=== PATIENT | male | born 1990 | race Caucasian/White ===

== ENCOUNTER 2017-05-08 03:12 | Observation (INO) ==
[2017-05-08 06:55] VITALS: BP 138/80
[2017-05-08] MEDS ORDERED: *HR* LORazepam 2 MG/ML VIAL IVP PRN (07:00)
[2017-05-08] MEDS ORDERED: *HR* HYDROcodone/Acet 5/325 mg TABLET PO PRN (07:03)
[2017-05-08] MEDS ORDERED: NON-FORMULARY MEDICATION 1 EACH EACH (Buprenorphine Hcl/Naloxone Hcl [Suboxone 8 Mg-2 Mg S PO SCH (09:00)
--- NOTE | 2017-05-08 11:49 | Event Note ---
Date of Encounter: 05/08/17 Time of Encounter: 11:48 Patient left the hospital AMA before I saw him.
[2017-05-08] MEDS ORDERED: Gabapentin 300 MG CAPSULE PO SCH (21:00)
[2017-05-08] MEDS ORDERED: Acetaminophen 325 MG TABLET PO SCH (21:00)
== END 2017-05-08 08:53 | disposition left against medical advice (07) ==
LOC: 2ANU
PROVIDERS: ADMIT Internal Medicine; ATTEND Internal Medicine

== ENCOUNTER 2017-05-08 20:31 | Observation (INO) ==
[2017-05-08] MEDS ORDERED: *HR* Propofol 500 MG/50 ML BOTTLE IVP ONE (20:47)
[2017-05-08] MEDS ORDERED: 0.9 % Sodium Chloride 1,000 ML IVC ONE (20:48)
--- NOTE | 2017-05-08 21:09 | Emergency Department Note ---
START Narrative - START START: I examined this patient and my medical decision-making was reviewed with the Resident Physician. I agree with the documented findings, disposition and treatment plan as described except to the extent set forth below. 26 year old male presntse to the eD with complaints of left shoudler dislocation and is a transfer from [place] where they attempted to reduce the shoulder x 4 under versed sedation and was unsuccessful. He is neurovascualarly intact although this disloction ahs been out for about 24 hours and may deem to be difficult to reduce. WE will attempt with sedation with propofol and then reduce and consult with ortho if we are unsuccessful with reduction. High likelihood that this it will not be reduced. Consent has been obtained.
[2017-05-08] MEDS ORDERED: *HR* LORazepam 2 MG/ML VIAL IVP ONE (21:52)
[2017-05-08] MEDS ORDERED: *HR* LORazepam 2 MG/ML VIAL ONE (21:53)
--- NOTE | 2017-05-08 22:31 | Emergency Department Note ---
Disposition Clinical Impression: Anterior shoulder dislocation Qualifiers: Encounter type: initial encounter Laterality: left Qualified Code(s): S43.015A - Anterior dislocation of left humerus, initial encounter Disposition: Admitted As Inpatient Condition: Fair Time of Disposition: 22:34 General Adult HPI - General Chief complaint: ED Extremity Injury, Upper Stated complaint: left shoulder dislocation Time Seen by Provider: 05/08/17 20:35 Source: patient, EMS Limitations: no limitations Nursing Notes Reviewed: Yes Vital Signs Reviewed: Yes - History of Present Illness HPI Narrative: Patient is a 26-year-old male who presents to [facility] ED with a chief complaint of left shoulder dislocation. Patient states he had a seizure last night and had left shoulder pain. He then came back to [facility] where he was found to have a left shoulder dislocation. States they attempted to reduce it 4 times without success. He was then sent over here for further management. Apparently he had also been sent over to our facility for admission and neuro workup. He then left AGAINST MEDICAL ADVICE earlier this morning. Onset (ago): hour(s) Location: left, upper extremity Pain Severity: moderate Pain Scale: 7 Consistency: constant Improves with: nothing Worsens with: nothing Associated symptoms: Reports: denies other symptoms. Denies: chest pain, cough , fever/chills, nausea/vomiting, shortness of breath Treatments Prior to Arrival: NSAID - Related Data Home Medications Medication Instructions Recorded Confirmed Buprenorphine HCl/Naloxone HCl 1 film PO BID 05/08/17 05/08/17 [Suboxone 8 mg-2 mg Sl Film] Allergies Allergy/AdvReac Type Severity Reaction Status Date / Time No Known Allergies Allergy Verified 02/16/17 21:35 All systems ED: reviewed and negative except as stated. Past Medical History - Past Medical History Attestation: Yes The following information was validated with the patient. Source: patient Medical history: Reports: other Surgical history: Reports: no surgical history Psychiatric history: Reports: no psych history - Social History Smoking Status: Current every day smoker Smokeless Tobacco Status: No Alcohol use: Reports: none Drug use: Reports: none, opiates, prescription drug abuse, other Physical Exam - General Limitations: no limitations General appearance: alert - Head Head exam: atraumatic, normocephalic, normal inspection - Eye Eye exam: Present: normal appearance, PERRL, EOMI - ENT ENT exam: normal exam, normal oropharynx, mucous membranes moist - Neck Neck exam: Present: trachea midline - Chest Chest inspection: Present: normal inspection, symmetric chest wall rise - Respiratory Respiratory exam: Present: normal lung sounds bilaterally - Cardiovascular Cardiovascular exam: Present: normal rhythm, tachycardia, normal heart sounds - Abdominal Exam Abdominal exam: Present: soft, Non-Tender. Absent: tenderness, distention, guarding, rebound, rigidity - Expanded Upper Extremity Exam Shoulder exam: Present: tenderness, dislocation (L shoulder) Vascular exam: Normal: capillary refill, radial pulse - Back Exam Back exam: Present: normal inspection, full ROM. Absent: tenderness - Neurological Exam Neurological exam: Present: alert, oriented X3 - Psychiatric Psychiatric exam: Present: normal affect, normal mood - Skin Skin exam: Present: warm, dry, intact, normal color Course Course Narrative: Patient seen and examined. Left shoulder dislocation. We will set up for procedural sedation for reduction. Propofol ordered. Consent was signed. Reduction was unsuccessful. Postreduction film still shows anterior dislocated shoulder. I discussed with on-call orthopedic surgeon Dr. Garcia who states that due to this patient's recent new onset seizures, we will admit to medicine and he will consult. I also discussed with neurologist Dr. Santos who states they will see this patient on an outpatient basis. States no need for any seizure medication at this time. They can be consulted if patient has another seizure while inpatient. Vital Signs Temperature 98.4 F 05/08/17 20:34 Pulse Rate 106 05/08/17 20:34 Respiratory Rate 20 05/08/17 20:34 Blood Pressure 134/70 05/08/17 20:34 O2 Sat by Pulse Oximetry 97 05/08/17 20:34 Temperature 98.2 F 05/08/17 23:02 Pulse Rate 119 05/08/17 23:02 Respiratory Rate 17 05/08/17 23:02 Blood Pressure 164/91 05/08/17 23:02 O2 Sat by Pulse Oximetry 94 05/08/17 23:02 Oxygen Delivery Oxygen Delivery [2211] Room Air Oxygen Delivery [2156] Nasal Cannula Oxygen Delivery [2151] Nasal Cannula Oxygen Delivery [2146] Nasal Cannula Oxygen Delivery [2140] Nasal Cannula Oxygen Delivery [2136] Nasal Cannula Oxygen Delivery [2132] Nasal Cannula Oxygen Delivery [2117] Nasal Cannula Oxygen Delivery Room Air Procedures - Orthopedic Joint Reduction Joint #1 Consent Obtained: verbal consent, written consent Time Out Performed: Yes Side: left Joint Reduction Location: shoulder ASA Classification: CLASS II-Mild systemic disease Analgesia: procedural sedation Shoulder Technique Used (if applicable): traction/counter-traction Post-reduction neuro exam: intact Post-reduction vascular: intact Post Reduction X-Ray Obtained: Yes Post Reduction X-Ray Results: not reduced Splint Applied: No Patient Tolerated Procedure: well - Procedural Sedation Indication: fracture/dislocation reduction Dietary Status: NPO after Midnight Previous reaction to sedatives/anesthetics: No Airway Assessment: Patient can open mouth completely, TMJ function normal, Micrognathia (under-bite, receding chin) absent, Neck with adequate range of motion Possible difficult airway: No ASA Classification: CLASS II-Mild systemic disease Plan of Care: Pt appropriate candidate for procedure/moderate/conscious sedation , Risks/benefits of procedure/sedation discussed w/ patient/family Preparation: quality assurance monitor chassis applied, pulse oximeter, capnometry used, supplemental O2 applied, suction/airway equipment at bedside, IV secured IV Propofol Dose (mgs): 100 Patient Tolerated Procedure: well, no complications Complications: none Interventions: oxygen applied Medical Decision Making - Medical Records Medical records reviewed: Yes I reviewed the patient's medical records. - Lab Data Result diagrams: 05/09/17 00:27 05/08/17 23:17 - Radiology Data Radiology results reviewed: Yes I reviewed the patient's radiology results. Shoulder X-Ray 05/08/17 21:42 IMPRESSION: Persistent anterior inferior left glenohumeral dislocation. No evident fracture. D/ / Germán Staton / Germán Staton Interpreting Provider: Germán Staton
--- NOTE | 2017-05-08 22:44 | Internal Med History&Physical ---
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 EEG will need done Seizure precautions PRN Ativan for sz activity Code(s): R56.9 - Unspecified convulsions Internal Medicine - H&P: HPI Chief complaint: left shoulder dislocation Admitted From: Emergency Dept Plans for Post Hospital Care: Home History of present illness: The patient is a 26 year old man who was admitted to [facility] via transfer from [facility] ER early this am (~7am)following a syncopal event and witnessed seizure while at [facility] who left AMA later in the morning (~8am per RN notes) before being seen by Neurology and having an ordered left shoulder X-Ray completed. He then returned to [facility] ER later in the day with left shoulder pain and X-rays revealed a sholder dislocation. Per ER notes they were unsuccesful at reducing the dislocationa and he was transfered to [facility] ER. Propafol was used to sedate him but the attempt to reduce his dislocation was also unsuccessful. Orthopedic surgery was reported called and the hopitalist service was asked to admit him for consultation and possible surgery. No further seizure activity is reported by the patient. He still needs further workup for the syncopal event and new onset seizure. Past Med Surg Social Fam HX - Past Medical History Medical history: other Psychiatric history: no psych history - Past Surgical History Surgical History: no surgical history - Social History Smoking Status: Current every day smoker Smokeless Tobacco Status: No Alcohol use: none Drug use: none, opiates, prescription drug abuse, other - Family History Mother Family Member Ethnicity: Non- Living Status: Still Living Hx Family Cardiac Disorders: Yes (HTN) Internal Medicine - H&P: Meds Buprenorphine HCl/Naloxone HCl [Suboxone 8 mg-2 mg Sl Film] 1 film PO BID [History] 3 Allergy/AdvReac Type Severity Reaction Status Date / Time No Known Allergies Allergy Verified 02/16/17 21:35 All Systems PM: A 10-system review of systems was performed and is negative for pertinent findings except as documented above in the HPI. - Constitutional Constitutional: no anorexia, no chills, no lethargy - EENT Eyes: no diplopia, no irritation, no photophobia Nose, mouth and throat: no dry mouth, no nasal congestion, no sore throat, no throat swelling - Breasts Breasts: skin changes - Cardiovascular Cardiovascular ROS IM: no chest pain, no diaphoresis, no irregular heart rhythm , no paroxysmal nocturnal dyspnea, no syncope - Respiratory Respiratory: dyspnea - Gastrointestinal Gastrointestinal: no change in bowel habits, no dysphagia, no fecal incontinence - Musculoskeletal Musculoskeletal ROS IM: as per HPI, joint swelling, limited range of motion, no neck pain, no numbness - Integumentary Integumentary IM: erythema, no pruritus, no skin ulcer, no sores, no jaundice - Neurological Neurological ROS: no abnormal speech, no behavioral changes, no disequilibrium, no lack of coordination, no paresthesias, no radicular pain, no tingling - Psychiatric Psychiatric: no hallucinations, no homicidal ideation, no suicidal ideation - Constitutional Vitals: Temp Pulse Resp BP Pulse Ox 98.4 F 108 20 113/98 97 05/08/17 20:34 05/08/17 22:14 05/08/17 22:14 05/08/17 22:14 05/08/17 20:34 General appearance: Present: A&O X 3 - Head Head exam: Present: atraumatic, normocephalic - Eye Eye exam: Present: normal appearance, PERRL, conjuntiva pink, sclera anicteric Pupils: Present: PERRL - Neck Neck exam general surgery: Present: supple, trachea midline. Absent: lymphadenopathy - Respiratory Respiratory exam: Present: CTAB. Absent: accessory muscle use, rales, rhonchi, wheezes - Cardiovascular Cardiovascular exam: Present: RRR, +S1, +S2. Absent: diastolic murmur, gallop, rubs, systolic murmur - GI/Abdominal GI/Abdominal exam: Present: normal bowel sounds, soft, no peritoneal signs. Absent: distended, tenderness - Extremities Exam Extremities exam: Present: warm, radial pulses palpable and symmetrical. Absent : calf tenderness, cyanotic, pedal edema - Neurological Exam Neurological exam: Present: CN II-XII intact, oriented X3, no focal deficits. Absent: pronater drift, facial droop, speech deficit - Skin Skin exam: Present: dry, intact
[2017-05-08] MEDS ORDERED: *HR* FentaNYL (PF) 100 MCG/2 ML VIAL IVP PRN (22:56)
[2017-05-08] MEDS ORDERED: *HR* HYDROcodone/Acet 5/325 mg TABLET PO PRN (22:57)
[2017-05-08] MEDS ORDERED: 0.9 % Sodium Chloride 1,000 ML IVC SCH (23:00)
[2017-05-08] MEDS ORDERED: Acetaminophen 325 MG TABLET PO PRN (23:10)
[2017-05-08] MEDS ORDERED: *HR* LORazepam 2 MG/ML VIAL IVP PRN (23:38)
[2017-05-08 23:39] LABS: INR 1.1
[2017-05-08] MEDS ORDERED: Melatonin 3 MG TABLET PO PRN (23:39)
[2017-05-08 23:41] LABS: Activated Partial Thrombo Time 28.6 Seconds (26.0-36.0)
[2017-05-08 23:51] LABS: BUN/Creatinine Ratio 16 (6-26); Blood Urea Nitrogen 10 mg/dL (6-20); Calcium 9.1 mg/dL (8.6-10.3); Carbon Dioxide 26 mEq/L (23-29); Chloride 107 mEq/L (98-107); Glucose 106 mg/dL (70-105); Osmolality,Calculated 287 (280-300); Potassium 3.3 mEq/L (3.5-5.1); Sodium 139 mEq/L (136-145); eGFR For Non-African Americans > 60 (> 60)
[2017-05-08] MEDS: Ketorolac 30 MG/ML VIAL IVP PRN (23:56)
[2017-05-09 01:42] LABS: Eosinophils % 0.4 %; Hematocrit 36.7 % (37.5-50.1); Hemoglobin 12.4 g/dL (12.9-16.9); Immature Granulocytes % 0.2 % (0-4); Immature Platelets 1.6 % (1.1-6.1); Lymphocytes % 9.6 %; Mean Corpuscular HGB Conc 33.8 g/dL (31.6-35.5); Mean Corpuscular Hemoglobin 31.1 pg (28.0-33.3); Mean Platelet Volume 9.4 fL (9.4-12.4); Monocytes % 11.5 %; Platelet Count 253 K/mcL (140-400); Red Blood Count 3.99 M/mcL (4.19-5.50); Red Cell Distribution Width 12.9 % (11.5-14.5); Segmented Neutrophils % 78.1 %
[2017-05-09 01:43] LABS: Basophils % 0.2 %; Lymphocytes # 0.9 K/mcL (0.6-4.6); Monocytes # 1.1 K/mcL (0.0-1.3); Neutrophils # 7.6 K/mcL (1.6-8.9)
[2017-05-09] MEDS: Nicotine 14 MG PATCH.TD24 TD SCH (09:20)
[2017-05-09] MEDS: Ketorolac 30 MG/ML VIAL IVP PRN (09:40)
--- NOTE | 2017-05-09 12:08 | Orthopedic Consult Note ---
Date of Encounter: 05/09/17 Time of Encounter: 12:01 History of Present Illness Chief complaint: Left shoulder pain HPI: Mr. Lo is a 26 year old right hand dominant male who sustained a left shoulder injury in what was a witnessed seizure in the emergency room at [facility]. The patient apparently had little shoulder pain with that first occurred but returned to the emergency room later for further evaluation and treatment.. Yesterday he was seen at [facility] and reportedly had at least 4 attempts to reduce a shoulder dislocation. These were unsuccessful and the patient was sent to [facility]'s emergency room for further treatment. Again several attempts were made to reduce the shoulder with propofol anesthesia without success. I was called to see the patient for this shoulder dislocation. My recommendation was to admit the patient to the hospital and proceed with a general anesthesia under controlled situation. This is also necessary in light of the patient's recent undiagnosed seizure episode. Patient denies numbness or tingling. He states that he has had no previous episodes. Complete history and physical data as well as laboratory and x-ray studies were reviewed. Pertinent orthopedic examination reveals an empty glenoid sign on the left side. Neurosensory exam appears grossly intact. I did not perform a full exam due to the known dislocation and to minimize any additional trauma to the shoulder. Did review multiple left shoulder x-rays. There were 2 sets of shoulder x-rays taken at [facility] the revealed persistent anterior inferior glenohumeral dislocation. A third set obtained at [facility] late last night revealed persistent glenohumeral dislocation. Impression: Left anterior inferior glenohumeral dislocation, repeated attempts at reduction unsuccessful. Recommendation: I discussed with the patient the diagnosis and management of a shoulder dislocation. Due to the repeated episodes in a short period of time I did not recommend further attempts last night. In addition, the patient's recent seizure has been diagnosed and I would not feel comfortable proceeding with a more generalized anesthetic without the assistance of an anesthesiologist. For that reason the patient was admitted to the hospital and now we are going to proceed with closed reduction of his shoulder under anesthesia. [facility] understands that there is a slight risk that the closure reduction will not be successful and he will require an open reduction. We discussed all the potential risks and complications of the surgery at length whether we are doing a closed and open reduction. The patient is well aware that he does stand a high percentage chance of recurrent dislocations and we did discuss the possibility of surgical stabilization in the future. This would not even be entertained until his seizure disorder has been fully evaluated and he is appropriate for surgical intervention. Informed consent has been signed to proceed with the reduction today. We will place him into a sling and swath strap post operatively to minimize any repeat episodes. Thank you very much for line is seen care for Mr. Lo. Sincerely, Wes Garcia,DO Past Med Surg Social Fam HX - Past Medical History Medical history: other Psychiatric history: no psych history - Past Surgical History Surgical History: no surgical history - Social History Smoking Status: Current every day smoker Packs per day: 1/2 pack Smokeless Tobacco Status: No Alcohol use: none Drug use: none, opiates, prescription drug abuse, other - Family History Mother Adopted: No Family Member Ethnicity: Non- Living Status: Still Living Hx Family Cardiac Disorders: Yes (HTN) Hx Family Respiratory Disorders: No Hx Family Cancer: No Hx Family GI Disorders: No Hx Family Genitourinary Disorders: No Hx Family Endocrine Disorder: No Hx Family Musculoskeletal Disorders: No Hx Family Neuromuscular Disorders: No Hx Family Neurologic Disorders: No Hx Family HEENT Disorders: No Hx Family Autoimmune Disorders: No Hx Family Reproductive Disorders: No Hx Family Psychosocial Disorders: No Hx Family Medical Disorders: No Medications and Allergies Buprenorphine HCl/Naloxone HCl [Suboxone 8 mg-2 mg Sl Film] 1 film PO BID [History] 3 Allergy/AdvReac Type Severity Reaction Status Date / Time No Known Allergies Allergy Verified 02/16/17 21:35 All Systems Reviewed: The remainder of the systems were reviewed and are negative Physical Exam - Constitutional Vitals: Temp Pulse Resp BP Pulse Ox 98.1 F 108 16 159/82 96 05/09/17 10:51 05/09/17 10:51 05/09/17 10:51 05/09/17 10:51 05/09/17 10:51 Results - Labs Result Diagrams: 05/09/17 00:27 05/08/17 23:17 Labs: Abnormal lab results RBC 3.99 M/mcL (4.19-5.50) L 05/09/17 00:27 Hgb 12.4 g/dL (12.9-16.9) L D 05/09/17 00:27 Hct 36.7 % (37.5-50.1) L 05/09/17 00:27 Potassium 3.3 mEq/L (3.5-5.1) L 05/08/17 23:17 Creatinine 0.63 mg/dL (0.70-1.30) L 05/08/17 23:17 Glucose 106 mg/dL (70-105) H 05/08/17 23:17 H & H 05/09/17 Range/Units 00:27 Hgb 12.4 L D (12.9-16.9) g/dL Hct 36.7 L (37.5-50.1) % All other labs normal. - Diagnostic results Shoulder x-ray: image reviewed Consult Discharge Plan - Plan Referrals: NONE,PCP [Primary Care Provider] - Patrick Avila MD [Family Provider] -
--- NOTE | 2017-05-09 13:04 | Internal Med Progress Note ---
Date of Encounter: 05/09/17 Time of Encounter: 09:00 - Assessment and plan (1) Anterior shoulder dislocation Current Visit: Yes Status: Acute Assessment and plan: ortho eval pain control Qualifiers: Encounter type: initial encounter Laterality: left Qualified Code(s): S43.015A - Anterior dislocation of left humerus, initial encounter (2) Seizure Current Visit: Yes Status: Acute Assessment and plan: continue keppra 500mg IV q12h Neuro eval, consulted and called (3) Syncope and collapse Current Visit: Yes Status: Acute Assessment and plan: follow syncope work up viz-ECHO and carotids - Subjective Interval history: Patient is seen and evaluated with his mother at the bedside. 26-year-old male with new onset seizures, complicated by dislocation of his left anterior shoulder. He is pending orthopedic evaluation at my time of evaluation. He denies any new complaints. Pain on his left shoulder. I spoke with Dr. Santos neurologist airport operations supervisor, who recommended patient be started on Keppra, patient is on Keppra 500 mg IV q12h - Constitutional Vitals: Temp Pulse Resp BP Pulse Ox 98.1 F 108 16 159/82 96 05/09/17 10:51 05/09/17 10:51 05/09/17 10:51 05/09/17 10:51 05/09/17 10:51 General appearance: Present: A&O X 3, no acute distress, obese - Head Head exam: Present: atraumatic, normocephalic - Eye Eye exam: Present: PERRL, conjuntiva pink, sclera anicteric Pupils: Present: PERRL - Neck Neck exam general surgery: Present: supple, trachea midline. Absent: lymphadenopathy - Respiratory Respiratory exam: Present: CTAB. Absent: accessory muscle use, rales, rhonchi, wheezes - Cardiovascular Cardiovascular exam: Present: RRR, +S1, +S2. Absent: diastolic murmur, gallop, rubs, systolic murmur - GI/Abdominal GI/Abdominal exam: Present: normal bowel sounds, soft, no peritoneal signs. Absent: distended, tenderness - Extremities Exam Extremities exam: Present: warm, radial pulses palpable and symmetrical. Absent : calf tenderness, cyanotic, pedal edema - Neurological Exam Neurological exam: Present: alert, CN II-XII intact, oriented X3, no focal deficits. Absent: pronater drift, facial droop, speech deficit - Skin Skin exam: Present: dry, intact Internal Medicine: Result - Labs CBC & Chem 7: 05/09/17 00:27 05/08/17 23:17 Labs: Short CBC 05/09/17 Range/Units 00:27 WBC 9.7 (4.3-11.1) K/mcL Hgb 12.4 L D (12.9-16.9) g/dL Hct 36.7 L (37.5-50.1) % Plt Count 253 (140-400) K/mcL Neutrophils # 7.6 (1.6-8.9) K/mcL BMP 05/08/17 23:17 Sodium 139 Potassium 3.3 L Chloride 107 Carbon Dioxide 26 BUN 10 Creatinine 0.63 L Glucose 106 H Calcium 9.1 - ABG Interpretation ABG results: PT/INR, D-dimer PT 12.0 Seconds (9.4-12.1) 05/08/17 23:17 Consult Discharge Plan - Plan Referrals: Patrick Avila MD [Family Provider] - NONE,PCP [Primary Care Provider] -
--- NOTE | 2017-05-09 14:48 | Neurology - Consult Note ---
Date of Encounter: 05/09/17 Time of Encounter: 14:39 Assessment and Plan (1) New onset seizure Current Visit: Yes Status: Acute This patient will apparently had a new seizure witnessed by the family in the emergency room according to the family has a generalized tonic-clonic conversion without any obvious Exacerbating factors He is been on Suboxone for quite some time no changes in the dosage or frequency. Seemed to be unprovoked and has caused it location of his shoulder Probably needs surgical intervention any generalized anesthesia. Concern about clearance for anesthesia because of the seizure He has been started on Keppra suggested to continue we will get an EEG and probably need MRI later As far as any clear evidence for seizures patient with underlying seizure disorder, remain at risk for breakthrough seizures pre-and recovery. Due to effect of medication and is practically no way to predict the outcome The best way is to treat any breakthrough seizures if there is any patient is already on antiepileptic medication suggest to continue and pre-and postop. Patient and family should be aware off risk of breakthrough seizures. A decision should be made according to the risk-benefit ratio I have discussed in detail with the family and patient explained about the possibility of breakthrough seizures they understand and acknowledges Explained that he is already on medication and suggest that he should continue on it (2) H/O: substance abuse Current Visit: Yes Status: Acute History of Present Illness HPI: Mr. Lo is a 26 year old male who was admitted to [facility] via transfer from [facility] early this am (~7am)following a syncopal event and witnessed seizure while at [facility] who left AMA later in the morning (~8am per RN notes) before being seen by Neurology and having an ordered left shoulder X-Ray completed. He then returned to [facility] ER later in the day with left shoulder pain and X-rays revealed a sholder dislocation. Per ER notes they were unsuccesful at reducing the dislocationa and he was transfered to [facility] ER. Propafol was used to sedate him but the attempt to reduce his dislocation was also unsuccessful. Orthopedic surgery was reported called and the hopitalist service was asked to admit him for consultation and possible surgery. No further seizure activity is reported by the patient. He still needs further workup for the syncopal event and new onset seizure. Past Med Surg Social Fam HX - Past Medical History Medical history: other Psychiatric history: no psych history - Past Surgical History Surgical History: no surgical history - Social History Smoking Status: Current every day smoker Packs per day: 1/2 pack Smokeless Tobacco Status: No Alcohol use: none Drug use: none, opiates, prescription drug abuse, other - Family History Mother Adopted: No Family Member Ethnicity: Non- Living Status: Still Living Hx Family Cardiac Disorders: Yes (HTN) Hx Family Respiratory Disorders: No Hx Family Cancer: No Hx Family GI Disorders: No Hx Family Genitourinary Disorders: No Hx Family Endocrine Disorder: No Hx Family Musculoskeletal Disorders: No Hx Family Neuromuscular Disorders: No Hx Family Neurologic Disorders: No Hx Family HEENT Disorders: No Hx Family Autoimmune Disorders: No Hx Family Reproductive Disorders: No Hx Family Psychosocial Disorders: No Hx Family Medical Disorders: No Medications and Allergies Buprenorphine HCl/Naloxone HCl [Suboxone 8 mg-2 mg Sl Film] 1 film PO BID [History] 3 Allergy/AdvReac Type Severity Reaction Status Date / Time No Known Allergies Allergy Verified 02/16/17 21:35 All Systems: The remainder of the systems were reviewed and are negative Physical Examination - Vital Signs Vital Signs: Initial Vital Signs Temp Pulse Resp BP Pulse Ox 98.4 F 106 20 134/70 97 05/08/17 20:34 05/08/17 20:34 05/08/17 20:34 05/08/17 20:34 05/08/17 20:34 - Neurologic Sensorimotor examination: intact Detailed motor examination: grossly full strength in all extremities Motor examination - right side: 5/5: deltoids, biceps, triceps, wrist flexion, wrist extension, hand tire trimmer, hip flexors, tibialis Anterior, quadriceps, toe extension (EHL), plantarflexion Motor examination - left side: 3/5: deltoids (pain), biceps, triceps, 5/5: wrist flexion, wrist extension, hip flexors, hand tire trimmer, quadriceps, tibialis Anterior , toe extension (EHL), plantarflexion Detailed sensory examination: intact Reflexes: Biceps: 1+, Triceps: 1+, Brachioradialis: 1+, Patella: 1+, Achilles: 1 + Mental Status Examination: awake, alert, oriented to person, oriented to place, oriented to time, follows commands appropriately, answers questions appropriately, no agnosia, no aphasia, no aproxia Cranial nerve examination: PERRL, EOMI, visual rai intact, corneal reflexes brisk symmetrically, sensory to face intact, mastication intact, no facial asymmetry is present, no dysarthria, hearing is intact symmetrically, soft palate elevates bilaterally upon phonation, gag reflex intact, flexes SCM and trapezius muscles symmetrically with full power, tongue protrudes midline, no atrophy or facial fasiculations present Cerebellar examination: no dysmetria, performs finger to nose and heel to person symmetrically without ataxia, no gait ataxia, no truncal ataxia, no difficulty with rapid alternating movements Results - Laboratory Findings CBC and BMP: 05/09/17 00:27 05/08/17 23:17 Abnormal lab findings: Abnormal lab results RBC 3.99 M/mcL (4.19-5.50) L 05/09/17 00:27 Hgb 12.4 g/dL (12.9-16.9) L D 05/09/17 00:27 Hct 36.7 % (37.5-50.1) L 05/09/17 00:27 Potassium 3.3 mEq/L (3.5-5.1) L 05/08/17 23:17 Creatinine 0.63 mg/dL (0.70-1.30) L 05/08/17 23:17 Glucose 106 mg/dL (70-105) H 05/08/17 23:17 Consult Discharge Plan - Plan Referrals: Patrick Avila MD [Family Provider] - NONE,PCP [Primary Care Provider] -
[2017-05-09] MEDS ORDERED: Albuterol 2.5 MG/3 ML NEBULIZER IH ONE (16:32)
[2017-05-09] MEDS ORDERED: Albuterol 2.5 MG/3 ML NEBULIZER ONE (16:33)
[2017-05-09] MEDS ORDERED: *HR* Propofol 200 MG/20 ML VIAL IVP ONE (17:29)
[2017-05-09] MEDS ORDERED: Lidocaine -MPF 2% 2 ML VIAL ONE (17:29)
[2017-05-09] MEDS ORDERED: *HR* FentaNYL (PF) 100 MCG/2 ML VIAL ONE (17:29)
[2017-05-09] MEDS ORDERED: Ondansetron 4 MG/2 ML VIAL ONE (17:52)
[2017-05-09] MEDS ORDERED: Dexamethasone 4 MG/ML VIAL ONE (17:52)
--- NOTE | 2017-05-09 18:15 | Anesthesia Evaluation PreOp ---
Date of Encounter: 05/09/17 Time of Encounter: 17:40 - Past History Planned Operation: Closed reduction left glenohumeral joint Cardiac History: Denies any Significant Hx, Other (Impressions: Sinus tachycardia. LVEF 60-65%. RV is not optimally visualized in all views. No significant valvular dysfunction. No pulmonary hypertension by TR gradient.) Pulmonary History: Smoker IRON HANDLER History: Denies Any Significant HX Other Medical History: Denies Any Significant HX Anesthesia History: Past Anesthesia (none) Alcohol Use: none Drug use: none, opiates, prescription drug abuse, other Medications and Allergies Buprenorphine HCl/Naloxone HCl [Suboxone 8 mg-2 mg Sl Film] 1 film PO BID [History] 3 Allergy/AdvReac Type Severity Reaction Status Date / Time No Known Allergies Allergy Verified 02/16/17 21:35 - Meds/Allergy Pre-op Review Medications Reviewed: Yes Allergies Reviewed: Yes Beta Blockers on Current Med List: No Anesthesia Results - Labs 05/09/17 00:27 05/08/17 23:17 Anesthesia Exam Weight: 126kg NPO (# of Hours): >8 - HEENT Pupil (Motor): Pupils equal, EOMI Mallampati: III Teeth: Normal Oral Opening: Greater than 3 - IRON HANDLER LOC: Oriented IRON HANDLER Motor: Normal RUE, Normal LUE, Normal RLE, Normal LLE, Normal Face IRON HANDLER Sensory: Normal: RUE, LUE, RLE, LLE, Face - Cardiac Rhythm: Regular - Pulmonary Breath Sounds: bilateral Clear Respiratory Effort: Symmetrical Anesthesia Assess/Plan ASA Score: 2 Modified P[place]te Scale for Level of Consciousness: Cooperative, oriented, and tranquil Anesthetic Plan: General Monitoring Plan: Standard Monitors Recovery Plan: PACU
[2017-05-09] MEDS ORDERED: *HR* OxyCODONE Immed Rel 5 MG TABLET PO PRN ×2 (18:16→18:30)
[2017-05-09] MEDS ORDERED: Ondansetron 4 MG/2 ML VIAL IVP ONE ×2 (18:16→18:30)
[2017-05-09] MEDS ORDERED: *HR* Promethazine 25 MG/ML VIAL IVP PRN ×2 (18:16→18:30)
[2017-05-09] MEDS ORDERED: Acetaminophen IV 1,000 MG/100 ML INFUS..BTL IVPB ONE ×2 (18:16→18:30)
[2017-05-09] MEDS ORDERED: *HR* Meperidine 25 MG/ML SYRINGE IVP PRN ×2 (18:16→18:30)
[2017-05-09] MEDS ORDERED: 0.9 % Sodium Chloride 1,000 ML IVC SCH (18:30)
[2017-05-09] MEDS ORDERED: Melatonin 3 MG TABLET PO PRN (18:30)
[2017-05-09] MEDS ORDERED: Ketorolac 30 MG/ML VIAL IVP PRN (18:30)
[2017-05-09] MEDS ORDERED: Acetaminophen 325 MG TABLET PO PRN (18:30)
[2017-05-09] MEDS ORDERED: *HR* LORazepam 2 MG/ML VIAL IVP PRN (18:30)
--- NOTE | 2017-05-09 18:30 | Anesthesia Evaluation Post Op ---
Date of Encounter: 05/09/17 Time of Encounter: 18:28 - Vital Signs Vital Signs: Vital Signs/O2 Sat, Most Current Temp Pulse Resp BP Pulse Ox 98.7 F 97 18 127/83 92 05/09/17 18:04 05/09/17 18:24 05/09/17 18:24 05/09/17 18:24 05/09/17 18:24 - Lungs Lungs: Clear Ascult./Percussion - Airway Airway: Non-obstructed - Cardiovascular Regular Rate - Mental Status Mental Status: Alert & Oriented, Answers Appropriately - Nausea Vomiting Nausea Vomiting: Not Present - Hydration Hydration: NPO - Discharge PostOp Status: Transfer Patient to floor
--- NOTE | 2017-05-09 18:39 | Operative Note ---
Date of procedure: 05/09/17 Pre-op diagnosis: Left glenohumeral dislocation Post-op diagnosis: same Procedure: 1. Closed reduction left glenohumeral dislocation under anesthesia 2. Fluoroscopic guidance for closed reduction left glenohumeral dislocation Implants: None Complications: None Anesthesia: CAMMIEA Surgeon: Wes Garcia Was there an physician assistant present: No Estimated blood loss (cc): 0 Specimen: None Condition: stable Disposition: PACU Procedure in Detail: Gross findings: Preoperative x-rays revealed an anterior inferior glenohumeral dislocation without any evidence of fracture. Patient had undergone at least 6 previous attempts at reduction under various forms of sedation in 2 separate emergency room's. The patient has sustained a dislocation as result of a new onset seizure. Clinically the patient had an empty glenoid sign with an intact neurovascular status. The shoulder was reduced very gently as soon as complete inhalation anesthesia was administered. Gentle anterior traction resulted in a very subtle easy reduction. Shoulder was examined under fluoroscopy with internal and external rotation without evidence of instability. Patient was placed in a sling and swath strap for postoperative immobilization. Procedure: Patient is taking the operating room and placed in supine position on the operative table. Patient was now administered general anesthesia. Once adequate level anesthesia had been obtained the left upper extremity was held and traction placed gently anterior. The anterior chest was stabilized and with a very palpable and audible reduction the glenohumeral joint was reduced. Multiplane fluoroscopy was used to verify that the reduction was concentric. The shoulder was stable to internal and external rotation. No attempt was made abduction. Patient was now placed into a sling and swath. Patient now awake from anesthesia and then transported to the postanesthesia care unit in stable and satisfactory condition.
[2017-05-09] MEDS ORDERED: NALOXONE HCL PO SCH (21:00)
[2017-05-09] MEDS ORDERED: BUPRENORPHINE HCL PO SCH (21:00)
[2017-05-09] MEDS: BUPRENORPHINE HCL PO SCH (21:19)
[2017-05-09] MEDS: NALOXONE HCL PO SCH (21:19)
[2017-05-10] MEDS: NALOXONE HCL PO SCH (08:16)
[2017-05-10] MEDS: BUPRENORPHINE HCL PO SCH (08:16)
[2017-05-10] MEDS ORDERED: Nicotine 14 MG PATCH.TD24 TD SCH (09:00)
--- NOTE | 2017-05-10 09:04 | Discharge Summary ---
- NOTES TO OUTPATIENT PROVIDER Notes to Outpatient Provider: PCP, Orthopedic surgery, Neurology Orders not resulted at time of discharge: Pending orders 05/09/17 09:55 Urine tox screen [Drug Screen, Urine] [UCHEM] Routine 05/10/17 09:03 MR head/brain wo con [MR] Stat Date of Encounter: 05/10/17 Time of Encounter: 09:04 - Discharge Diagnosis (1) Anterior shoulder dislocation Priority: Primary Status: Acute Qualifiers: Encounter type: initial encounter Laterality: left Qualified Code(s): S43.015A - Anterior dislocation of left humerus, initial encounter (2) Seizure Priority: Primary Status: Acute (3) Syncope and collapse Priority: Primary Status: Acute Hospital course: Mr. Lo is a 26 year old male was admitted for new-onset seizures awith history of syncope which was uncertain due to history of seizures at the same time. The patient was reviewed by orthopedic surgery and had reductionfor the dislocation under general anesthesia. Brain MRI, EEG and head CT unremarkable for any acute reasons for his seizures. Neurology evaluation was requested and patient was started on 500 mg twice a day. The patient is seen and examined at the bedside this morning, he has no symptoms he has been seizure-free since the first seizure prior to arrival. Electrolytes are stable patient is stable to be discharged on Keppra 500 Milligrams twice a day and follow ups established with neurology and orthopedic surgery. Follow-up with PCP. He is clinically stable at this time and can be discharged home on KEppra. Education provided about medication and side effects Discharge discussed with: patient, family, nurse - Time Spent with Patient Total time spent providing and/or coordinating discharge services: Less than 30 minutes - Discharge Medications Prescriptions: LevETIRAcetam [Keppra] 500 mg PO BID #60 tablet Home Medications: Buprenorphine HCl/Naloxone HCl [Suboxone 8 mg-2 mg Sl Film] 1 film PO BID [History] LevETIRAcetam [Keppra] 500 mg PO BID #60 tablet 05/10/17 [Rx] Allergies/Adverse Reactions: 3 Allergy/AdvReac Type Severity Reaction Status Date / Time No Known Allergies Allergy Verified 02/16/17 21:35 Date of admission: 05/08/17 22:31 Primary care physician: PCP NONE Consults: 05/09/17 02:44 Consult to Orthopedic Surgery [CONS] Routine Consulting Provider: Orthopedic and Sports Medicine Reason for Consult: L shoulder dislocation Call Completed: Yes 05/09/17 08:44 Consult to Neurology [CONS] Routine Consulting Provider: Neurology [facility] Reason for Consult: New onset seizures Call Completed: Yes Discharging clinician: Timmy Harley Anticipated date of discharge: 05/10/17 - Constitutional Vitals: Temp Pulse Resp BP Pulse Ox 98.3 F 98 18 134/88 96 05/10/17 06:28 05/10/17 06:28 05/10/17 06:28 05/10/17 06:28 05/10/17 06:28 General appearance: Present: A&O X 3, no acute distress, obese - Head Head exam: Present: atraumatic, normocephalic - Eye Eye exam: Present: PERRL, conjuntiva pink, sclera anicteric Pupils: Present: PERRL - Neck Neck exam general surgery: Present: supple, trachea midline. Absent: lymphadenopathy - Respiratory Respiratory exam: Present: CTAB. Absent: accessory muscle use, rales, rhonchi, wheezes - Cardiovascular Cardiovascular exam: Present: RRR, +S1, +S2. Absent: diastolic murmur, gallop, rubs, systolic murmur - GI/Abdominal GI/Abdominal exam: Present: normal bowel sounds, soft, no peritoneal signs. Absent: distended, tenderness - Extremities Exam Extremities exam: Present: warm, radial pulses palpable and symmetrical. Absent : calf tenderness, cyanotic, pedal edema - Neurological Exam Neurological exam: Present: alert, CN II-XII intact, oriented X3, no focal deficits. Absent: pronater drift, facial droop, speech deficit - Skin Skin exam: Present: dry, intact - Patient Status Disposition: Home, Self-Care Condition: Good Functional capacity at discharge: independent ambulation Overall status at discharge: patient is back to baseline - Discharge Instructions Follow Up With: Leilani Tay CNP [Advanced Practice Nurse] - 05/19/17 1:30 pm Wes Garcia DO [Non-Partnered Physician] - 05/31/17 10:30 am Diamante Santos MD [Partnered Physician] - 05/24/17 10:15 am NONE,PCP [Primary Care Provider] - Additional Instructions: WEAR SLING REGULARLY. CALL 911, YOUR PCP, OR GO TO THE NEAREST EMERGENCY ROOM IF SYMPTOMS RETURN OR WORSEN. TAKE ALL MEDICATION PRESCRIBED. - Diet and Activity Activity: resume usual activities as tolerated Diet: regular diet - VTE Documentation of Mechanical Device: Intermittent pneumatic compression device
[2017-05-10 10:55] VITALS: BP 159/88
[2017-05-10] MEDS ORDERED: FLUARIX QUAD 2017-18 36MOS UP/PF 0.5 ML SYRINGE IM ONE (12:25)
--- NOTE | 2017-05-10 13:10 | EEG/EMG/Oth Biometrics Report ---
EEG Procedure Report Date of procedure: 05/10/17 EEG Procedure: Routine EEG Procedure Note: Routine 21-channel digital EEG was obtained to rule out any seizure activity or focal abnormalities. FINDINGS: Background rhythm during awake stage shows well-organized, well- developed, average voltage 8 to 9 hertz alpha activity in the posterior regions. It blocks with eye opening and it is bilaterally synchronous and symmetrical. No [id number] discharges or any lateralizing abnormalities are seen. Photic stimulation did not produce any abnormalities. Hyperventilation was performed for 3 minutes. No abnormalities were found during the procedure. Intermittent EMG artifacts were seen. Stage II sleep was not achieved. IMPRESSION: Normal awake study. No epileptiform discharges or any other paroxysmal activities or focal abnormalities seen. Clinical correlation is recommended.
== END 2017-05-10 15:09 | disposition home or self-care (01) ==
LOC: 3NENU 20:31 → EMEROO 20:31 → 3NENU 23:21
PROVIDERS: ADMIT Internal Medicine; ATTEND Internal Medicine